=== PATIENT | female | born 1950 | race Two or more races ===

== ENCOUNTER 2017-09-17 08:59 | Outpatient (CLI) | payer OTHER | END 2017-09-17 09:04 | disposition home or self-care (01) | LOC: SONOGRAMA 08:59 | DX: E04.1 Nontoxic single thyroid nodule (principal) ==

== ENCOUNTER 2017-11-25 07:04 | Outpatient (CLI) | payer OTHER | END 2017-11-25 07:24 | disposition home or self-care (01) | LOC: MAMO-SONO 07:04 | DX: Z12.31 Encounter for screening mammogram for malignant neoplasm of breast (principal); Z87.898 Personal history of other specified conditions; N60.11 Diffuse cystic mastopathy of right breast; N60.12 Diffuse cystic mastopathy of left breast ==

== ENCOUNTER 2018-05-12 09:27 | Outpatient (CLI) | payer OTHER | END 2018-05-12 09:29 | disposition home or self-care (01) | LOC: RAD 09:27 | DX: N20.0 Calculus of kidney (principal); N32.81 Overactive bladder; R31.9 Hematuria, unspecified ==

== ENCOUNTER 2019-01-26 07:05 | Outpatient (CLI) | payer OTHER | END 2019-01-26 07:15 | disposition home or self-care (01) | LOC: MAMO-SONO 07:05 | DX: Z12.31 Encounter for screening mammogram for malignant neoplasm of breast (principal); Z87.898 Personal history of other specified conditions; N60.11 Diffuse cystic mastopathy of right breast; N60.12 Diffuse cystic mastopathy of left breast; N63.14 Unspecified lump in the right breast, lower inner quadrant ==

== ENCOUNTER → 2019-06-28 06:28 | Outpatient (CLI) | payer OTHER | END | disposition home or self-care (01) | LOC: LAB 06:28 | DX: F05 Delirium due to known physiological condition (principal) ==

== ENCOUNTER 2019-06-28 09:49 | Outpatient (CLI) | payer OTHER | END 2019-06-28 09:52 | disposition home or self-care (01) | LOC: NUCLEAR 09:49 | DX: M81.0 Age-related osteoporosis without current pathological fracture (principal); M15.9 Polyosteoarthritis, unspecified ==

== ENCOUNTER → 2019-06-28 | Outpatient (CLI) | payer OTHER | END | disposition home or self-care (01) | LOC: RAD 08:00 → MRI 08:00 → RAD 09:32 | DX: E03.8 Other specified hypothyroidism (principal); G45.4 Transient global amnesia; E04.2 Nontoxic multinodular goiter | CPT/HCPCS: 70551 ==

== ENCOUNTER 2020-04-11 07:11 | Outpatient (CLI) | payer OTHER | END 2020-04-11 07:24 | disposition home or self-care (01) | LOC: MAMO-SONO 07:11 | PROVIDERS: ATTEND Obstetrics & Gynecology | DX: Z12.31 Encounter for screening mammogram for malignant neoplasm of breast (principal); N60.11 Diffuse cystic mastopathy of right breast; N60.12 Diffuse cystic mastopathy of left breast ==

== ENCOUNTER 2020-09-21 07:24 | Outpatient (CLI) | payer OTHER | END 2020-09-21 07:38 | disposition home or self-care (01) | LOC: TOM 07:24 | PROVIDERS: ATTEND Urology | DX: N20.0 Calculus of kidney (principal); N32.81 Overactive bladder | CPT/HCPCS: 74176; Q9965 ==

== ENCOUNTER 2020-12-24 10:28 | Outpatient (CLI) | payer OTHER ==
[2021-02-15] MEDS ORDERED: VITAMIN B 12 PO (07:49)
[2021-02-15] MEDS ORDERED: ATACAND HCT 161 EACH PO (07:50)
[2021-02-15] MEDS ORDERED: CRESTOR10 MG PO (07:50)
[2021-02-15] MEDS ORDERED: CLONAZEPAM1 MG PO (07:51)
[2021-02-15] MEDS ORDERED: ATACAN PO (07:51)
[2021-02-15] MEDS ORDERED: GLIPIZ PO (07:52)
== END 2020-12-24 10:34 | disposition home or self-care (01) ==
LOC: RAD 10:28
DX: R07.2 Precordial pain (principal); M15.0 Primary generalized (osteo)arthritis

== ENCOUNTER → 2021-01-15 07:58 | Outpatient (CLI) | payer OTHER | END | disposition home or self-care (01) | LOC: NUCLEAR 07:58 | DX: E05.80 Other thyrotoxicosis without thyrotoxic crisis or storm (principal) | CPT/HCPCS: 78012; A9531 ==

== ENCOUNTER 2021-01-16 07:22 | Outpatient (CLI) | payer OTHER | END 2021-01-16 07:23 | disposition home or self-care (01) | LOC: NUCLEAR 07:22 | DX: E05.80 Other thyrotoxicosis without thyrotoxic crisis or storm (principal) | CPT/HCPCS: 78013; A9512 ==

== ENCOUNTER 2021-01-31 07:24 | Outpatient (CLI) | payer OTHER ==
[2021-02-15] MEDS ORDERED: VITAMIN B 12 PO (07:49)
[2021-02-15] MEDS ORDERED: ATACAND HCT 161 EACH PO (07:50)
[2021-02-15] MEDS ORDERED: CRESTOR10 MG PO (07:50)
[2021-02-15] MEDS ORDERED: ATACAN PO (07:51)
[2021-02-15] MEDS ORDERED: CLONAZEPAM1 MG PO (07:51)
[2021-02-15] MEDS ORDERED: GLIPIZ PO (07:52)
== END 2021-01-31 07:29 | disposition home or self-care (01) ==
LOC: SONOGRAMA 07:24
DX: E04.2 Nontoxic multinodular goiter (principal)

== ENCOUNTER 2021-02-20 06:02 | Day surgery (SDC) | payer OTHER ==
[~2021-02-20 06:02] MED LIST: ATACAN PO; ATACAND HCT 161 EACH PO; CLONAZEPAM1 MG PO; CRESTOR10 MG PO; GLIPIZ PO; VITAMIN B 12 PO
[2021-02-20] MEDS ORDERED: PERCOCET 5-3251 EACH PO (13:45)
== END 2021-02-20 16:10 | disposition home or self-care (01) ==
LOC: CIR.AMB 06:02
PROVIDERS: ATTEND Surgery
DX: C73 Malignant neoplasm of thyroid gland (principal); Z20.822 Contact with and (suspected) exposure to COVID-19

== ENCOUNTER → 2021-04-16 | Outpatient (CLI) | payer OTHER ==
[~2021-04-16] MED LIST changes: +PERCOCET 5-3251 EACH PO
== END | disposition home or self-care (01) ==
LOC: PPH VACUNA 09:48
PROVIDERS: ATTEND Emergency Medicine Pediatric Emergency Medicine
DX: Z23 Encounter for immunization (principal)

== ENCOUNTER 2021-04-26 07:09 | Outpatient (CLI) | payer OTHER | END 2021-04-26 07:13 | disposition home or self-care (01) | LOC: MAMO-SONO 07:09 | PROVIDERS: ATTEND Surgery | DX: N60.11 Diffuse cystic mastopathy of right breast (principal); N60.12 Diffuse cystic mastopathy of left breast; Z12.31 Encounter for screening mammogram for malignant neoplasm of breast ==

== ENCOUNTER 2021-05-01 06:28 | Day surgery (SDC) | payer OTHER | END 2021-05-01 10:45 | disposition home or self-care (01) | LOC: AMB-ENDOS 06:28 | PROVIDERS: ATTEND Colon & Rectal Surgery | DX: D12.4 Benign neoplasm of descending colon (principal); K62.1 Rectal polyp; K64.8 Other hemorrhoids; Z20.822 Contact with and (suspected) exposure to COVID-19; Z12.11 Encounter for screening for malignant neoplasm of colon ==

== ENCOUNTER 2021-07-31 09:59 | Outpatient (CLI) | payer OTHER | END 2021-07-31 10:05 | disposition home or self-care (01) | LOC: SONOGRAMA 09:59 → EMR ICU 09:59 | PROVIDERS: ATTEND Colon & Rectal Surgery | DX: C75.0 Malignant neoplasm of parathyroid gland (principal) ==

== ENCOUNTER 2021-08-22 09:56 | Outpatient (CLI) | payer OTHER | END 2021-08-22 09:59 | disposition home or self-care (01) | LOC: SONOGRAMA 09:56 | PROVIDERS: ATTEND Pathology Anatomic Pathology & Clinical Pathology | DX: E04.1 Nontoxic single thyroid nodule (principal) ==

== ENCOUNTER 2021-10-01 06:52 | Outpatient (CLI) | payer OTHER | END 2021-10-01 07:18 | disposition home or self-care (01) | LOC: TOM 06:52 | PROVIDERS: ATTEND Internal Medicine | DX: G30.9 Alzheimer's disease, unspecified (principal) ==

== ENCOUNTER 2021-12-26 07:14 | Outpatient (CLI) | payer OTHER | END 2021-12-26 07:24 | disposition home or self-care (01) | LOC: TOM 07:14 | DX: R10.9 Unspecified abdominal pain (principal) ==

== ENCOUNTER 2022-02-27 06:58 | Outpatient (CLI) | payer OTHER | END 2022-02-27 07:04 | disposition home or self-care (01) | LOC: SONOGRAMA 06:58 | DX: C73 Malignant neoplasm of thyroid gland (principal) ==

== ENCOUNTER 2022-06-20 07:19 | Outpatient (CLI) | payer OTHER | END 2022-06-20 07:26 | disposition home or self-care (01) | LOC: MAMO-SONO 07:19 | PROVIDERS: ATTEND Surgery | DX: N60.11 Diffuse cystic mastopathy of right breast (principal); N60.12 Diffuse cystic mastopathy of left breast ==

== ENCOUNTER 2023-08-25 09:32 | Outpatient (CLI) | payer OTHER | END 2023-08-25 09:39 | disposition home or self-care (01) | LOC: MAMO-SONO 09:32 | PROVIDERS: ATTEND Surgery | DX: N60.11 Diffuse cystic mastopathy of right breast (principal); N60.12 Diffuse cystic mastopathy of left breast ==